=== PATIENT | female | born 2000 | race Caucasian/White ===

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

== ENCOUNTER 2024-02-07 06:40 | Emergency (ER) | payer OTHER ==
[~2024-02-07] VITALS: Ht 160 cm; Wt 82.0 kg
[~2024-02-07 06:40] MED LIST changes: +ALBU2SYR24 PO; -ALBU2SYR3 PO; +HYDR-459 PO; +SERT25TA PO
[2024-02-07 06:47] VITALS: BP 124/80; PULSE 100; RESP 16; TEMP 98.3; O2SAT 99
[2024-02-07] MEDS: FAMOTIDINE 20MG TABLET PO ONE (07:20)
[2024-02-07] MEDS: DEXAMETHASONE 4MG/ML 1ML VIAL PO ONE (07:20)
[2024-02-07] MEDS: LORATADINE 10MG TABLET PO SCH (07:20)
== END 2024-02-07 07:28 | disposition home or self-care (01) ==
LOC: ER 06:50
DX: T78.40XA Allergy, unspecified, initial encounter (principal); J45.909 Unspecified asthma, uncomplicated; F32.A Depression, unspecified; F41.9 Anxiety disorder, unspecified; Z88.0 Allergy status to penicillin; Z88.6 Allergy status to analgesic agent; Z98.890 Other specified postprocedural states; X58.XXXA Exposure to other specified factors, initial encounter
CPT/HCPCS: 99284; J1100; Z7610

== ENCOUNTER 2024-08-29 18:09 | Emergency (ER) | payer OTHER ==
[~2024-08-29] VITALS: Ht 157.5 cm; Wt 80.0 kg
[2024-08-29 18:12] VITALS: TEMP 36.6; O2SAT 98
[2024-08-29 18:40] LABS: BASOPHILS % 0.6 % (0.0-2.0); EOSINOPHILS % 1.6 % (0.0-5.0); HEMATOCRIT. 42.3 % (36.0-48.0); HEMOGLOBIN. 13.9 g/dL (12.0-16.0); LYMPHOCYTES % 31.6 % (20.0-50.0); MEAN CORPUSCULAR HEMOGLOBIN 26.7 pg (28.0-32.0); MEAN CORPUSCULAR HGB CONC 32.7 g/dL (31.0-37.0); MEAN CORPUSCULAR VOLUME 81.6 fL (81.0-99.0); MEAN PLATELET VOLUME 8.8 fl (7.4-10.4); MONOCYTES % 5.8 % (2.0-8.0); NEUTROPHILS % 60.4 % (40.0-76.0); PLATELET 263 x1000/uL (130-400); RED BLOOD CELL COUNT 5.19 mill/uL (4.2-5.4); RED CELL DISTRIBUTION WIDTH 15.9 % (11.6-14.6); WHITE BLOOD COUNT 9.7 x1000/uL (4.5-11.0)
[2024-08-29 18:46] LABS: CHLORIDE 105 mEq/L (98-107); POTASSIUM 3.8 mEq/L (3.5-5.1); SODIUM 138 mEq/L (136-145)
[2024-08-29 18:47] LABS: CARBON DIOXIDE 24 mEq/L (21-32)
[2024-08-29 18:48] LABS: CALCIUM 9.3 mg/dL (8.7-10.4)
[2024-08-29 18:51] LABS: HCG SCREEN NEGATIVE
[2024-08-29 18:52] LABS: CREATININE 0.5 mg/dL (0.6-1.0); GLUCOSE 93 mg/dL (70-105)
[2024-08-29 18:53] LABS: UREA NITROGEN BLOOD 5 mg/dL (9-23)
[2024-08-29 18:57] LABS: PROTHROMBIN TIME 10.3 sec (9.6-11.0)
[2024-08-29 18:59] LABS: TROPONIN I HIGH SENSITIVITY < 4 ng/L (3.0-34)
[2024-08-29] MEDS: PREDNISONE 20MG TABLET PO ONE (19:58)
[2024-08-29] MEDS: IPRATROPIUM/ALBUTEROL 0.5-3(2.5)MG/3ML NEB HHN ONE (20:00)
[2024-08-29] MEDS ORDERED: ALBU18HF2 IH (21:15)
[2024-08-29] MEDS ORDERED: P50 MT (21:15)
[2024-08-29 21:19] VITALS: BP 121/80; PULSE 83; RESP 17; O2SAT 97
== END 2024-08-29 21:23 | disposition home or self-care (01) ==
LOC: ER 18:09
DX: J45.901 Unspecified asthma with (acute) exacerbation (principal); R07.89 Other chest pain; F41.9 Anxiety disorder, unspecified; F32.A Depression, unspecified; Z79.899 Other long term (current) drug therapy; Z98.890 Other specified postprocedural states; Z88.6 Allergy status to analgesic agent; Z88.0 Allergy status to penicillin
CPT/HCPCS: 80048; 84703; 83880; 85025; 85610; 84484; 36415; 71045; 93005; 99285; J7512; Z7610